=== PATIENT | male | born 1995 | race Caucasian/White ===

== ENCOUNTER → 2024-09-03 | Outpatient (CLI) | payer OTHER, SELFPAY ==
[2024-09-03 12:13] LABS: Erythrocyte Sedimentation Rate 12 mm/hr (0-20)
[2024-09-03 12:15] LABS: Absolute Lymphocyte Count 1.64 X10^3/uL (0.83-4.51); Absolute Neutrophil Count 3.4 X10^3/uL (2.0-7.7); Basophil# 0.09 X10^3/uL; Basophil% 1.5 % (0-1); Eosinophil# 0.13 X10^3/uL; Eosinophils% 2.2 % (0-5); Hematocrit 37.7 % (40-54); Hemoglobin 11.1 g/dL (13.0-16.5); Lymphocyte # 1.64 X10^3/ul (0.83-4.51); Lymphocyte % 27.6 % (19-41); Mean Corp Hgb Conc 29.4 g/dL (32-36); Mean Corpuscular Hgb 22.2 pg (27.0-32.0); Mean Corpuscular Volume 75.4 fL (80-94); Mean Platelet Vol. 9.4 fl (6.2-12.0); Monocyte# 0.61 X10^3/uL; Monocyte% 10.3 % (0-10); NRBC Flagged by Analyzer 0 % (0-5); Neutrophil # 3.44 X10^3/uL (2.7-7.7); Neutrophil % 57.9 % (47-70); Platelet Count 362 K/mm3 (150-450); RBC Distribution Width CV 15.2 % (11.6-14.6); RBC Distribution Width SD 41.5 fl (35.1-43.9); White Blood Count 5.9 K/mm3 (4.4-11.0)
[2024-09-03 12:46] LABS: AST(SGOT) 18 U/L (15-37); Alanine Aminotransfer ALT/SGPT 26 U/L (16-61); Albumin, Serum 3.7 g/dL (3.2-5.0); Alkaline Phosphatase 81 U/L (45-117); Anion Gap 4 (5-15); BUN 13 mg/dL (7-18); BUN/Creat Ratio 12.9 RATIO (10-20); Chloride 107 mmol/L (98-107); Creatinine, Serum 1.01 mg/dL (0.70-1.30); EST Glomerular Filtration Rate 94 mL/min (>60); Est Glom Filt Rate - Afr Amer 113 mL/min (>60); Globulin 3.7 g/dL (2.2-4.2); Glucose 98 mg/dL (74-106); Potassium 3.8 mmol/L (3.5-5.1); Protein, Total 7.4 g/dL (6.4-8.2); Sodium Level 140 mmol/L (136-145); T4 Free Direct 1.03 ng/dL (0.76-1.46)
[2024-09-07 09:22] LABS: Anti-Centromere B Ab 0.6 AI (0.0-0.9); Anti-Chromatin 0.2 AI (0.0-0.9); Anti-Jo <0.2 AI (0.0-0.9); Anti-Scleroderma-70 AB <0.2 AI (0.0-0.9); Anti-dsDNA Ab 1 IU/mL (0-9); RNP Ab <0.2 AI (0.0-0.9); SJOGREN'S Anti-SS-A test 1.3 AI (0.0-0.9); SJOGREN'S Anti-SS-B test < 0.2 AI (0.0-0.9); Smith Ab 0.2 AI (0.0-0.9)
[2024-09-08 08:09] LABS: ACCA 10 units (0-90); ALCA 15 units (0-60); AMCA 110 units (0-100); Albumin 3.7 g/dL (2.9-4.4); Alpha-1-Globulins 0.3 g/dL (0.0-0.4); Alpha-2-Globulins 0.7 g/dL (0.4-1.0); Cytoplasmic Ab (C-ANCA) <1:20 titer (Neg:<1:20); Gamma Globulin 1.3 g/dL (0.4-1.8); Immunoglobulin A 148 mg/dL (90-386); Immunoglobulin E 123 IU/mL (6-495); Immunoglobulin G 1434 mg/dL (603-1613); Immunoglobulin M 101 mg/dL (20-172); PROEL- TOTAL PROTEIN 7.1 g/dL (6.0-8.5); Perinuclear Ab (P-ANCA) <1:20 titer (Neg:<1:20); gASCA 23 units (0-50)
== END | disposition home or self-care (01) ==
LOC: LAB 11:46
PROVIDERS: PCP Family Medicine; Referring Provider Student in an Organized Health Care Education/Training Program; Visit Provider Student in an Organized Health Care Education/Training Program
DX: K52.9 Noninfective gastroenteritis and colitis, unspecified (principal)
CPT/HCPCS: 36415; 80053; 82784; 82785; 83516; 84165; 84439; 84443; 84481; 85025; 85652; 86036; 86037; 86140; 86225; 86235; 86334; 86671

== ENCOUNTER → 2024-09-25 | Outpatient (CLI) | payer OTHER, SELFPAY | END | disposition home or self-care (01) | LOC: LABSPEC 17:02 | PROVIDERS: PCP Family Medicine; Referring Provider Student in an Organized Health Care Education/Training Program; Visit Provider Student in an Organized Health Care Education/Training Program | DX: K58.0 Irritable bowel syndrome with diarrhea (principal) | CPT/HCPCS: 82653; 83630; 83993; 87177; 87209; 87329; 87493; 87506 ==

== ENCOUNTER 2024-10-08 06:25 | Day surgery (SDC) | payer OTHER, SELFPAY ==
[2024-10-08] VITALS (9 sets, daily range): BP systolic 80–136; BP diastolic 63–78; PULSE 88–115; RESP 14–20; TEMP 36.3–36.7; O2SAT 96–98; BMI 29.2
--- NOTE | 2024-10-08 07:03 | PRE.ANES_ITS ---
ASA Classification* ASA Classification ASA Classification: 2 Assessment & Plan Anesthesia* Anesthesia Assessment Anesthesia Assessment: Discussed sedation and/or anesthesia options, risks, benefits, and alternatives with patient/parents/legal guardian/POA. Questions invited. The patient/parents/legal guardian/POA seems to understand and agrees to proceed with anesthesia plan. Reviewed the physical assessment, medical history, allergy history and patient home medications list prior to surgery/procedure/anesthetic and documented any changes. Performed airway and anesthesia risk assessments. Anesthesia Type Anesthesia Type: MAC Anesthesia Focused Assessment* Temperature: 98.0 F Pulse Rate: 115 Blood Pressure: 136/78 Respiratory Rate: 20 Pulse Ox: 98 Airway Assessment Mouth opens: >3 cm Mallampati Score: II Focused Labs Anesthesia Preop lab: CBC WBC 5.9 K/mm3 (4.4-11.0) 09/03/24 11:50 RBC 5.00 M/mm3 (4.6-6.2) 09/03/24 11:50 Hgb 11.1 g/dL (13.0-16.5) L 09/03/24 11:50 Hct 37.7 % (40-54) L 09/03/24 11:50 Plt Count 362 K/mm3 (150-450) 09/03/24 11:50 CHEMISTRY Potassium 3.8 mmol/L (3.5-5.1) 09/03/24 11:50 Sodium 140 mmol/L (136-145) 09/03/24 11:50 BUN 13 mg/dL (7-18) 09/03/24 11:50 Creatinine 1.01 mg/dL (0.70-1.30) 09/03/24 11:50 Glucose 98 mg/dL (74-106) 09/03/24 11:50 TSH 3.070 uIU/mL (0.358-3.740) 09/03/24 11:50 COAG Pre-Assessment Diagnosis/Proposed Procedure Planned Operative Procedure(s): CSCOPE Anesthesia History 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 When Was Last Pacemaker Check QUESTION #4 FULL TEXT: You/Your Family Experience fever (hyperthermia) with Anesthesia Last Oral Intake Last Oral intake: Last Oral Intake NPO since 02:50 10/08/24 06:50 Meds taken in AM with sips of No 10/08/24 06:50 water? Meds patient instructed to take am of surgery PONV PONV - bottle assembler: PONV - bottle assembler Female No 10/07/24 08:51 HX of Motion Sickness No 10/07/24 08:51 HX of N/V After Surgery No 10/07/24 08:51 Non-Smoker Yes 10/07/24 08:51 Duration of Surgery greater No 10/07/24 08:51 than 60 minutes Number of Risk Factors 1 10/07/24 08:51 PONV Score Low Risk 10/07/24 08:51 Height & Weight Height & Weight: Anesthesia: Height & Weight Height 5 ft 11 in 10/08/24 06:50 Weight: 95 kg 10/08/24 06:50 Body Mass Index (BMI) 29.2 10/08/24 06:50 Respiratory Assessment Respiratory Assessment - bottle assembler: Respiratory Tract Infection Hx - bottle assembler Hx Respiratory Tract Infection No 10/07/24 08:51 STOP Sleep Apnea STOP Sleep Apnea - bottle assembler: STOP Sleep Apnea - bottle assembler Hx Hypertension No 10/07/24 08:51 Hx Sleep Apnea No 10/07/24 08:51 CPAP BIPAP Do you snore loudly (louder No 10/07/24 08:51 than talking or can be heard Do you often feel tired/ No 10/07/24 08:51 fatigued/ sleepy during daytime? Has anyone observed you stop No 10/07/24 08:51 breathing during sleep? STOP Results Negative 10/07/24 08:51 QUESTION #5 FULL TEXT : Do you snore loudly (louder than talking or can be heard through closed doors)? 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 Specify any problems Hx of Preganancy in last 3 N/A 10/07/24 08:51 Months Nurse Filling Out Transfusion NBUCHER 10/07/24 08:51 & Questions: Date: 10/07/24 10/07/24 08:51 Time: 08:52 10/07/24 08:51 Patient unable to answer at this time (ie. confused, unrespo /Reproduction History /Reproductive History - bottle assembler: /Reproductive Hx- bottle assembler Hx Now No 10/07/24 08:51 Gestational Age (in weeks): EDC: Hx Hx Para Hx Section SAB No 10/07/24 08:51 COUNT INCLUDES THE [facility] Medical History (Updated 10/07/24 @ 08:54 by Yecenia Whitmore) Wears glasses Non-smoker Acne vulgaris Chronic diarrhea Home Medications ?Medication ?Instructions ?Recorded ?Last Taken ?Type dicyclomine 10 mg capsule 10 mg PO BID #30 caps 09/11/24 09/24/24 Rx Allergy/AdvReac Type Severity Reaction Status Date / Time No Known Allergies Allergy Verified 10/08/24 06:49 Family History (Updated 07/24/24 @ 13:26 by Bailey Smith) Mother Diabetes Surgical History (Updated 10/07/24 @ 08:54 by Yecenia Whitmore) History of wisdom tooth extraction Social History (Updated 07/24/24 @ 13:26 by Bailey Smith) Smoking Status: Never smoker alcohol intake: never substance use type: does not use Review of Systems (Anesthesia) ROS Narrative System reviewed and no additional complaints, except as documented.
--- NOTE | 2024-10-08 07:15 | COLBX_PTH ---
PATIENT: LINDSAY MARTÍNEZ LOC: [facility] U#:[id number] AGE/SX: 29/M ROOM: RE10/08/[address]: Dr. Rom Cheema DO : 1995 BED: DIS: 10/08/2024 SPEC #: [id number] RECD: 10/08/24 08:06 STATUS: DINORAH SHANIQUA #: [id number] GUY: 10/08/24 07:[address]: Rom Cheema DEPT: SURGICAL PATHOLOGY RECD BY: Macrina Livingston ENTERED: 10/08/24 09:43 SP TYPE: COLON BX OT DR: Dr. Rickie Melara DO Tissues: A - Ileum, NOS B - Right colon C - Transverse colon D - Left colon E - Rectum, NOS Procedures: Surgery Specimen Level IV HEADER OPERATION: Colonoscopy, biopsy PRE-OP DIAGNOSIS: Diarrhea, hematochezia, unintentional weight loss TISSUE SUBMITTED: A- Terminal ileum biopsy, B- Right side colon biopsy, C- Transverse colon biopsy, D- Left side colon biopsy, E- Rectal biopsy MICROSCOPIC DIAGNOSIS A. Terminal ileum, biopsy: Focal chronic active inflammation. See comment. B. Right side colon, biopsy: Moderate to marked chronic active colitis. See microscopic description and comment. C. Transverse colon, biopsy: Moderate to marked chronic active colitis. See microscopic description and comment. D. Left side colon, biopsy: Moderate to marked chronic active colitis. See microscopic description and comment. E. Rectal biopsy: Moderate to marked chronic active colitis. See microscopic description and comment. COMMENT A. Focal cryptitis and crypt abscesses are noted. Granulomas are not seen. Findings are consistent with inflammatory bowel disease, ulcerative colitis. Correlation with clinical, endoscopic findings and appropriate follow up are necessary. MICROSCOPIC DESCRIPTION Slides are reviewed. B-E. All four specimens show similar morphologic features. The specimens show fragments of colonic mucosa with ulceration, moderate to marked acute and chronic inflammatory cell infiltrates in the lamina propria, glandular distortion, cryptitis and crypt abscesses. Graulomas are not seen. No evidence of dysplasia. GROSS DESCRIPTION A. Received in fixative is one container labeled with the patient's name and designated Terminal ileum biopsy. The specimen consists of multiple irregular fragments of light peck soft tissue that in aggregate measure 1.5 x 0.5 x 0.2 cm. The specimen is totally submitted in one cassette. B. Received in fixative is one container labeled with the patient's name and designated Right side colon biopsy. The specimen consists of multiple irregular fragments of light peck soft tissue that in aggregate measure 1.3 x 0.6 x 0.2 cm. The specimen is totally submitted in one cassette. C. Received in fixative is one container labeled with the patient's name and designated Transverse colon biopsy. The specimen consists of multiple irregular fragments of light peck soft tissue that in aggregate measure 1.3 x 0.5 x 0.2 cm. The specimen is totally submitted in one cassette. D. Received in fixative is one container labeled with the patient's name and designated Left side colon biopsy. The specimen consists of multiple irregular fragments of light peck soft tissue that in aggregate measure 2.0 x 0.6 x 0.3 cm. The specimen is totally submitted in one cassette. E. Received in fixative is one container labeled with the patient's name and designated Rectal biopsy. The specimen consists of multiple irregular fragments of light peck soft tissue that in aggregate measure 1.0 x 0.5 x 0.2 cm. The specimen is totally submitted in one cassette. mr 10/08/2024 TC:2 CPT:20188z6
--- NOTE | 2024-10-08 07:28 | PCM.HP.STD ---
HPI - General General Date of Admission: 10/08/24 Date of Service: 10/08/24 Chief Complaint: bloody diarrhea HPI Narrative LINDSAY MARTÍNEZ, is a 29 M who presentsChief Complaint: bloody diarrhea For the past 4 months pt has had issues with diarrhea for the past 4 months. He has never had GI issues prior to this. He is having 12-14 bm per day that are almost always liquid or loose. His bm are very urgent. He has also had blood in his stool. Over this time he has had a 12 lbs weight loss unintentionally. He feels he may be eating less hoping to avoid bowel movements. If he eats in the evening he will wake up 2-3 times during the night with loose stools. All foods give him diarrhea. He denies heartburn, n/v, constipation or melena. He has a distant family hx of Crohns disease and colon cancer. His primary care provider saw him and ordered some testing that showed low food allergies but no other abnormalities. Biochemical work up; A1C 5.7 H , celiac wnl, CMP wnl, lipase wnl, amylase wnl, TSH wnl, Food allergy testing: peanut .26 H, sesame seed .27 H, almond .25 H, scallop .10 H, egg white .39 H, cows milk .18 H, wheat .35 H, soybean .21 H, hazelnut .18 H, cashew .15 H, walnut .18 H [facility] Medical History (Updated 10/07/24 @ 08:54 by Yecenia Whitmore) Wears glasses Non-smoker Acne vulgaris Chronic diarrhea Home Medications ?Medication ?Instructions ?Recorded ?Last Taken ?Type dicyclomine 10 mg capsule 10 mg PO BID #30 caps 09/11/24 09/24/24 Rx Allergy/AdvReac Type Severity Reaction Status Date / Time No Known Allergies Allergy Verified 10/08/24 06:49 Family History (Updated 07/24/24 @ 13:26 by Bailey Smith) Mother Diabetes Surgical History (Updated 10/07/24 @ 08:54 by Yecenia Whitmore) History of wisdom tooth extraction Social History (Updated 07/24/24 @ 13:26 by Bailey Smith) Smoking Status: Never smoker alcohol intake: never substance use type: does not use ROS Constitutional Constitutional: Denies fatigue, fever(s), poor appetite, weight gain or weight loss Gastrointestinal Gastrointestinal: Denies belching, bloating, change in bowel habits, change in stool character, chewing difficulty, coffee ground emesis, constipation, cramping, diarrhea, dyspepsia, dysphagia, early satiety, excessive flatus, fecal incontinence, heartburn, hematemesis, hematochezia, hemorrhoids, loose stools, melena, nausea, odynophagia, rectal bleeding, tenesmus, vomiting or weight changes Vital Signs Vital Signs Vital Signs: 10/08/24 06:50 10/08/24 06:50 10/08/24 07:03 Temperature 98.0 F 98.0 F Temperature Source Temporal Pulse Rate 115 H 115 H Respiratory Rate 20 H 20 H Respiratory Pattern Normal Blood Pressure 136/78 H 136/78 H Blood Pressure Mean 97 Blood Pressure Source Monitor Blood Pressure Position Semi-Fowlers Blood Pressure Location Right Arm Pulse Ox 98 98 Oxygen Delivery Method Room Air Weight Weight: 209 lb 7.026 oz Body Mass Index (BMI) 29.2 Physical Exam Const alert, oriented x3, no apparent distress and healthy appearing General Appearance: cooperative GI normal to inspection, nondistended, normoactive bowel sounds, soft to palpation, non-tender and non-distended Percussion: normal to percussion Rectal Exam: deferred Assessment & Plan Assessment/Plan (1) Hematochezia: (2) Unintentional weight loss: (3) Chronic diarrhea: PLAN: Plan Assessment and Plan Assessment and Plan (1) Diarrhea: Plan: This is a 29 yo male pt here today for evaluation of frequent urgent diarrhea and bloody stools for the past 4 months. Prior to this he was having no GI symptoms. He has had a 12 lbs weight loss over this time period. PCP ordered food allergies, celiac and basic blood work which was wnl besides low food allergies. I have concern for IBD due to alarm features like weight loss, blood in his stools and frequency of stools. I will order blood testing for IBD, ESR and CRP. Will also order stool testing as well. He will undergo colonoscopy to assess his lower GI tract. -Blood work -Stool test -Colonoscopy - (2) Hematochezia: Status: Acute (3) Unintentional weight loss: Status: Acute Orders: Orders
--- NOTE | 2024-10-08 08:04 | OP.COLON_ITS ---
Patient Name: Adriana Rao Procedure Date: 10/08/2024 7:36 AM Date of : 1995 Age: 29 Procedure: Colonoscopy Indications: Hematochezia Providers: Rom Cheema DO Referring MD: Rickie Carver Do Medicines: Monitored Anesthesia Care Patient Profile: This is a 29 year old male. Refer to note in patient chart for documentation of history and physical. Last Colonoscopy: none. The patient's first colonoscopy is today. Complications: No immediate complications. Procedure: Pre-Anesthesia Assessment: - Prior to the procedure, a History and Physical was performed, and patient medications and allergies were reviewed. The patient is competent. The risks and benefits of the procedure and the sedation options and risks were discussed with the patient. All questions were answered and informed consent was obtained. Patient identification and proposed procedure were verified by the physician in the pre-procedure area. Mental Status Examination: alert and oriented. Airway Examination: normal oropharyngeal airway and neck mobility. Respiratory Examination: clear to auscultation. CV Examination: normal. Prophylactic Antibiotics: The patient does not require prophylactic antibiotics. Prior Anticoagulants: The patient has taken no anticoagulant or antiplatelet agents. ASA Grade Assessment: II - A patient with mild systemic disease. After reviewing the risks and benefits, the patient was deemed in satisfactory condition to undergo the procedure. The anesthesia plan was to use monitored anesthesia care (MAC). Immediately prior to administration of medications, the patient was re-assessed for adequacy to receive sedatives. The heart rate, respiratory rate, oxygen saturations, blood pressure, adequacy of pulmonary ventilation, and response to care were monitored throughout the procedure. The physical status of the patient was re-assessed after the procedure. After I obtained informed consent, the scope was passed under direct vision. Throughout the procedure, the patient's blood pressure, pulse, and oxygen saturations were monitored continuously. The Colonoscope was introduced through the anus and advanced to the terminal ileum. The colonoscopy was performed without difficulty. The patient tolerated the procedure well. The quality of the bowel preparation was adequate. The terminal ileum, ileocecal valve, appendiceal orifice, and rectum were photographed. Scope In: 7:40:35 AM Scope Withdrawal Time 0 hours 8 minutes 51 seconds Scope Out: 7:51:32 AM Total Procedure Duration Time 0 hours 10 minutes 57 seconds Findings: The perianal and digital rectal examinations were normal. Inflammation was found in a continuous and circumferential pattern from the rectum to the terminal ileum. This was graded using the Ulcerative Colitis Endoscopic Index of Severity (UCEIS): complete obliteration of vascular pattern (2), moderate or severe luminal bleeding (3), superficial ulcers (2), with UCEIS total score of 7 (severe disease). When compared to the previous examination, the findings are new. Biopsies were taken with a cold forceps for histology. Verification of patient identification for the specimen was done. Estimated blood loss was minimal. Patchy inflammation characterized by erythema was found in the terminal ileum. The inflammation was mild in severity. Biopsies were taken with a cold forceps for histology. Verification of patient identification for the specimen was done. Estimated blood loss was minimal. A small amount of stool was found in the recto-sigmoid colon, without interference to visualization. Fluid aspiration was performed through the scope suction channel. The amount of fluid collected was 60 mL. Sample(s) were sent for bacterial cultures, Clostridium difficile and Gram stain. Verification of patient identification for the specimen was done. Estimated blood loss was minimal. Impression: - Pancolitis ulcerative colitis with UCEIS total score of 7 (severe disease), new since last examination. Biopsied. - Ileitis. Inflammation was found. This was mild in severity. Biopsied. - Stool in the recto-sigmoid colon. Fluid aspiration performed. Recommendation: - Discharge patient to home. - Resume previous diet. - Continue present medications. - Await pathology results. -Blood test for latent tuberculosis -Acute hepatitis profile -Prednisone 60 mg a day - Repeat colonoscopy is recommended for surveillance. The colonoscopy date will be determined after pathology results from today's exam become available for review. Procedure Code(s): --- Professional --- 08695, Colonoscopy, flexible; with biopsy, single or multiple CPT copyright 2021 [employer]. All rights reserved. The codes documented in this report are preliminary and upon him coder review may be revised to meet current compliance requirements. Rom Cheema DO 10/08/2024 8:03:57 AM This report has been signed electronically. Number of Addenda: 0 Note Initiated On: 10/08/2024 7:36 AM
--- NOTE | 2024-10-08 08:04 | OP.CCLET_ITS ---
10/08/2024 Rickie Carver Do Re : Colonoscopy procedure for Adriana Rao Dear Dr. Carver This procedure was performed on September. My impressions and recommendations are as follows: Impressions : - Pancolitis ulcerative colitis with UCEIS total score of 7 (severe disease), new since last examination. Biopsied. - Ileitis. Inflammation was found. This was mild in severity. Biopsied. - Stool in the recto-sigmoid colon. Fluid aspiration performed. Recommendations : - Discharge patient to home. - Resume previous diet. - Continue present medications. - Await pathology results. -Blood test for latent tuberculosis -Acute hepatitis profile -Prednisone 60 mg a day - Repeat colonoscopy is recommended for surveillance. The colonoscopy date will be determined after pathology results from today's exam become available for review. My findings are described in the full procedure note, which is enclosed. If I can be of further assistance, please feel free to contact me at . Sincerely, Rom Cheema DO 10/08/2024 8:03:57 AM This report has been signed electronically.
--- NOTE | 2024-10-08 08:04 | PCM.POST.ANE ---
Anesthesia: Postop Eval I Current Vital Signs Temperature: 97.5 F Pulse Rate: 91 Blood Pressure: 85/66 Respiratory Rate: 18 Pulse Ox: 97 Oxygen Delivery Method: Room Air Assessment Airway patent: Yes Spontaneous unlabored respirations: Yes Mental status: Asleep nausea: No Vomiting: No Anesthesia Complication: No Fluid Hydration Crystalloid volume administer (ml): 40 Total IV fluid infused: 40 Progress Note Anesthesia document: Postop Eval 1 completed: Yes
--- NOTE | 2024-10-08 08:18 | PCM.POSTANE2 ---
Anesthesia Postop Eval I Sum Postop Eval Completion status Anesthesia document: Postop Eval 1 completed: Yes Anesthesia Postop Eval I Summary Anesthesia Postop Eval I Summary: Anesthesia Postop Eval I: Assessment Summary Airway patent Yes 10/08/24 08:05 [email or web address] Spontaneous unlabored Yes 10/08/24 08:05 [email or web address] respirations Mental status Asleep 10/08/24 08:05 [email or web address] nausea No 10/08/24 08:05 [email or web address] Vomiting No 10/08/24 08:05 [email or web address] Anesthesia Postop Eval I: Fluid Summary Crystalloid volume administer 40 10/08/24 08:05 [email or web address] (ml) Colloids volume administered ( ml) Blood Product volume administered (ml) Total IV fluid infused 40 10/08/24 08:05 [email or web address] Anesthesia Postop Eval I: Summary Notes Anesthesia Complication No 10/08/24 08:05 [email or web address] Anesthesia Complication Comment: Post-operative progress note Anesthesia: Postop Eval II Evaluation Mental status: Awake Pain Level: 0 nausea: No Vomiting: No
== END 2024-10-08 09:02 | disposition home or self-care (01) ==
LOC: EN 06:26 → AC 06:27
PROVIDERS: PCP Family Medicine; Referring Provider Family Medicine; Visit Provider Internal Medicine Gastroenterology
PROC: 0DJD8ZZ Inspection of Lower Intestinal Tract, Via Natural or Artificial Opening Endoscopic (ICD-10-PCS; CPT 45378; principal; 2024-10-08 07:10)
DX: K51.00 Ulcerative (chronic) pancolitis without complications (principal); R63.4 Abnormal weight loss; Z80.0 Family history of malignant neoplasm of digestive organs; Z68.29 Body mass index [BMI] 29.0-29.9, adult
CPT/HCPCS: 45380; 87493; 87506; 88305; A4216; J2405

== ENCOUNTER → 2024-10-16 | Outpatient (CLI) | payer OTHER, SELFPAY ==
[2024-10-20 17:07] LABS: HEPATITIS B SURFACE AG Negative (Negative); Hep C Antibodies Non Reactive (Non Reactive); Hepatitis A IgM Antibody Negative (Negative); Hepatitis B Core AB IgM Negative (Negative); QNTFERON TB Mitogen Value > 10.00 IU/mL (.); QNTFERON TB Nil Value 0.03 IU/mL (.); QNTFERON TB1+ Ag Value 0 IU/mL (.); QNTFERON TB2+ Ag Value 0.03 IU/mL (.); QNTIFERON TB Positive Criteria Negative (Negative)
== END | disposition home or self-care (01) ==
LOC: LAB 11:47
PROVIDERS: PCP Family Medicine; Referring Provider Student in an Organized Health Care Education/Training Program; Visit Provider Student in an Organized Health Care Education/Training Program
DX: K51.90 Ulcerative colitis, unspecified, without complications (principal)
CPT/HCPCS: 36415; 80074; 86480

== ENCOUNTER → 2025-06-11 | Outpatient (CLI) | payer OTHER, SELFPAY ==
[2025-06-11 10:06] LABS: AST(SGOT) 23 U/L (<=37); Alanine Aminotransfer ALT/SGPT 23 U/L (<=46); Albumin, Serum 4.0 g/dL (3.5-5.0); Alkaline Phosphatase 60 U/L (40-129); Anion Gap 10 (5-15); BUN 16 mg/dL (4-19); BUN/Creat Ratio 17.1 RATIO (10-20); CRP 5.96 mg/L (0.0-3.0); Calcium,Total 9.0 mg/dL (7.6-11.0); Carbon Dioxide 25.5 mmol/L (21.0-32.0); Chloride 104 mmol/L (98-108); Globulin 3.0 g/dL (2.2-4.2); Glucose 92 mg/dL (70-99); Potassium 3.6 mmol/L (3.3-5.1)
[2025-06-11 10:30] LABS: Hematocrit 40.2 % (40-54); Hemoglobin 12.7 g/dL (13.0-16.5); Immature Granulocytes Count 0.020 X10^3/uL (0.0-0.0); Mean Corp Hgb Conc 31.6 g/dL (32-36); Mean Corpuscular Volume 83.9 fL (80-94); Mean Platelet Vol. 10.0 fl (6.2-12.0); NRBC Flagged by Analyzer 0 % (0-5); Platelet Count 297 K/mm3 (150-450); RBC Distribution Width CV 13.9 % (11.6-14.6); RBC Distribution Width SD 42.8 fl (35.1-43.9); Red Blood Count 4.79 M/mm3 (4.6-6.2); White Blood Count 6.8 K/mm3 (4.4-11.0)
== END | disposition home or self-care (01) ==
PROVIDERS: Referring Provider Student in an Organized Health Care Education/Training Program; Visit Provider Student in an Organized Health Care Education/Training Program
DX: K51.90 Ulcerative colitis, unspecified, without complications (principal); K92.1 Melena
CPT/HCPCS: 36415; 80053; 85025; 85652; 86140